=== PATIENT | female | born 1980 | race Caucasian/White ===

== ENCOUNTER 2018-09-03 09:09 | Emergency (ER) | payer OTHER ==
[~2018-09-03] VITALS: Ht 154.9 cm; Wt 52.2 kg
[~2018-09-03 09:09] MED LIST: IBUP-1007 PO; LEVO500T59 PO
--- NOTE | 2018-09-03 09:57 | PHYS DOC ---
Past Medical History Past Medical History: No Pertinent History Past Surgical History: No Surgical History Alcohol Use: None Drug Use: None Adult General Chief Complaint Chief Complaint: HAND PROBLEM HPI HPI Patient is a 38 year old AA female who presents to the emergency department with complaints of left middle finger swelling, pain, redness, and warmth with no known injury for the last 5 days. 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 Patient states that her left middle finger is very tender to touch she denies any drainage from the site. Patient states that the pain shoots up her arm at this time. She denies any redness, streaking, warmth, or swelling upper arm. Patient currently rates the pain a 10 out of 10 on the pain scale. She denies any known injury. Review of Systems Review of Systems Constitutional: Denies fever or chills [] Musculoskeletal: See HPI Integument: Denies rash or skin lesions; reports swelling and tenderness of medial left middle finger nailbed, denies any drainage or injury [] Neurologic: Denies headache, focal weakness or sensory changes [] Current Medications Current Medications Current Medications Medications (Trade) Dose Ordered Sig/Katia Start Time Stop Time Status Last Admin Dose Admin Lidocaine HCl (Xylocaine-Mpf 1% 2ml Vial) 4 ml 1X ONCE 09/03/18 10:00 09/03/18 10:01 DC 09/03/18 10:08 4 ML Neomycin/ Polymyxin/ Bacitracin (Triple Antibiotic Ointment) 1 pkt 1X ONCE 09/03/18 11:15 09/03/18 11:16 DC 09/03/18 11:15 1 PKT Allergies Allergies Allergies Coded Allergies Type Severity Reaction Last Updated Verified No Known Drug Allergies 09/03/18 No Physical Exam Physical Exam Constitutional: Well developed, well nourished, no acute distress, non-toxic appearance. [] HENT: Normocephalic, atraumatic, bilateral external ears normal, nose normal. [ ] Eyes: conjunctiva normal, no discharge. [] Neck: Normal range of motion, no stridor. [] Skin: Warm, dry Extremities: distal end of left medial middle finger TTP with 1+ edema noted and fluctuant area consistent with paronychia, no cyanosis, no clubbing, ROM intact, no deformity Neurologic: Alert and oriented X 3, normal motor function, normal sensory function, no focal deficits noted. [] Psychologic: Affect normal, judgement normal, mood normal. [] Current Patient Data Vital Signs Vital Signs Date Time Temp Pulse Resp B/P (MAP) Pulse Ox O2 Delivery O2 Flow Rate FiO2 09/03/18 11:15 98 18 123/81 (95) 96 09/03/18 09:33 97.7 Room Air 97.7 EKG EKG [] Radiology/Procedures Radiology/Procedures A digital block of the left middle finger was performed using 4 ml of 1% lidocaine. the nailbed was cleansed with alcohol and a 16 g sterile needle was used to lift the medial lower portion of the cuticle from the nail jeremy. A large amount of malodorous yellow pus was expressed from the site. Pt tolerated the procedure well. Course & Med Decision Making Course & Med Decision Making Pertinent Labs and Imaging studies reviewed. (See chart for details) Dx: paronychia L middle finger Procedure as described above. Pt was prescribed keflex and mupirocin. Epsom salt soaks TID. Wound recheck in 48 hours. Follow up with your primary care doctor for wound recheck, return to the ER if your symptoms worsen. Patient verbalized an understanding of home care, medications, follow-up, and return to ED instructions and was in agreement with the plan of care. Elvis Disclaimer Elvis Disclaimer This electronic medical record was generated, in whole or in part, using a voice recognition dictation system. Departure Departure Impression: Primary Impression: Paronychia of finger of left hand Disposition: HOME, SELF-CARE Condition: STABLE Referrals: NO PCP (PCP) Patient Instructions: Paronychia, [id number] Additional Instructions: Fill prescription(s) and use as directed. Soak affected area in epsom salt soaks 3-4x/day and as needed for comfort. May take tylenol or ibuprofen as needed for pain. Wound recheck in 48 hours. Follow up with your primary care doctor for wound recheck, return to the ER if your symptoms worsen. Scripts Cephalexin (KEFLEX) 500 Mg Capsule 500 MG PO QID for 7 Days, #28 CAP 0 Refills Prov: WILFREDO MONTOYA APRN 09/03/18 Mupirocin (MUPIROCIN OINTMENT) 22 Gm Oint...g. 1 EDEN TP TID for WOUND CARE for 7 Days, #1 TUBE 0 Refills Prov: WILFREDO MONTOYA MEDICAL EXAMINER 09/03/18 WILFREDO MONTOYA MEDICAL EXAMINER Sep 03, 2018 09:57
[2018-09-03] MEDS ORDERED: LIDOCAINE 1% PF 2 ML VIAL. INJ ONE (10:00)
[2018-09-03] MEDS ORDERED: CEPH-264 PO (11:11)
[2018-09-03] MEDS ORDERED: MUPI22OI2 TP (11:11)
[2018-09-03 11:15] VITALS: BP 123/81
[2018-09-03] MEDS ORDERED: NEOMY/BACITR/POLYMYXIN OINT PACKET. TP ONE (11:15)
== END 2018-09-03 11:23 | disposition home or self-care (01) ==
LOC: ER 09:09
DX: L03.012 Cellulitis of left finger (principal)
CPT/HCPCS: 10160; 99283; 99284